=== PATIENT | female | born 1985 | race Hispanic/Latino ===

== ENCOUNTER 2019-09-02 04:14 | Observation (INO) | payer MEDICARE ==
[2019-09-02 05:35] LABS: BASOPHILS % (AUTO) 0.5 % (0.0-5.0); EOSINOPHILS % (AUTO) 1.3 % (0.0-8.0); HEMATOCRIT 41.2 % (36-48); MEAN CORPUSCULAR HGB CONC 32.5 g/dL (32.0-36.0); MONOCYTES % (AUTO) 8.3 % (3.0-13.0); PLATELET COUNT (AUTO) 435 K/uL (130-400); RED BLOOD CELL COUNT(AUTO) 5.15 MIL/uL (4.00-5.50); RED CELL DISTRIBUTION WIDTH 12.9 % (11.0-15.5); WHITE BLOOD COUNT (AUTO) 7.5 K/uL (4.8-10.8)
[2019-09-02 05:43] LABS: CREATININE 0.5 mg/dL (0.5-1.5); POTASSIUM 4.1 mmol/L (3.5-5.1)
[2019-09-02 05:47] LABS: BILIRUBIN,TOTAL 0.8 mg/dL (0.2-1.0); TOTAL PROTEIN, SERUM 8.5 g/dL (6.0-8.3)
[2019-09-02 05:48] LABS: INR 0.92 (0.85-1.15); PARTIAL THROMBOPLASTIN TIME 27.3 SEC (26.3-35.5)
[2019-09-02] MEDS ORDERED: DiphenhydrAMINE HCL 50 MG/ML VIAL ONE (07:25)
[2019-09-02] MEDS ORDERED: METOCLOPRAMIDE 10 MG/2 ML VIAL ONE (07:25)
[2019-09-02] MEDS ORDERED: SODIUM CHLORIDE 0.9% 1000ML 1,000 ML IV ONE (07:25)
[2019-09-02] MEDS ORDERED: IOHEXOL-350 50ML VIAL IV ONE (07:45)
[2019-09-02] MEDS ORDERED: IOHEXOL 350 MG/ML 100ML INFUS..BTL IV ONE (07:45)
[2019-09-02] MEDS ORDERED: LACTULOSE 20 GM/30 ML UDCUP PO PRN (08:00)
[2019-09-02] MEDS ORDERED: ACETAMINOPHEN 325 MG TAB PO PRN ×2 (08:00)
[2019-09-02] MEDS ORDERED: KETOROLAC TROMETHAMINE 15MG/ML IV PRN (08:00)
[2019-09-02] MEDS ORDERED: ONDANSETRON HCL 4 MG/2 ML VIAL IV PRN (08:00)
[2019-09-02] MEDS ORDERED: FAMOTIDINE 20MG TAB 20 MG TAB PO SCH (09:00)
[2019-09-02] MEDS ORDERED: FAMOTIDINE 20MG TAB 20 MG TAB ONE ×2 (09:52→20:29)
[2019-09-02] MEDS ORDERED: ASPIRIN 81MG TAB.CHEW PO SCH (10:00)
[2019-09-02] MEDS ORDERED: ASPIRIN 81MG TAB.CHEW ONE (10:22)
[2019-09-02] MEDS ORDERED: METOPROLOL TARTRATE 25 MG TAB ONE ×2 (10:22→20:29)
[2019-09-02 10:54] LABS: HEMOGLOBIN A1C 5.8 % (4.0-6.0)
[2019-09-02 11:05] LABS: CHOLESTEROL 161 mg/dL (<200); HDL CHOLESTEROL 31 mg/dL (35-85); LDL DIRECT 110 mg/dL (0-99); THYROID STIMULATING HORMONE 1.64 uIU/mL (0.36-3.74); TRIGLYCERIDES 156 mg/dL (30-200)
[2019-09-02] MEDS ORDERED: ACETAMINOPHEN 325 MG TAB ONE (20:29)
[2019-09-02] MEDS ORDERED: METOPROLOL TARTRATE 25 MG TAB PO SCH (21:00)
[2019-09-03 06:07] LABS: BASOPHILS % (AUTO) 0.5 % (0.0-5.0); EOSINOPHILS % (AUTO) 1.7 % (0.0-8.0); HEMATOCRIT 38.9 % (36-48); LYMPHOCYTES % (AUTO) 25.6 % (21.0-51.0); MEAN CORPUSCULAR HEMOGLOBIN 26.5 pg (27.0-33.0); MEAN CORPUSCULAR HGB CONC 32.4 g/dL (32.0-36.0); MEAN CORPUSCULAR VOLUME 81.7 fL (79-99); MONOCYTES % (AUTO) 7.8 % (3.0-13.0); NEUTROPHILS % (AUTO) 63.9 % (40.0-77.0); PLATELET COUNT (AUTO) 392 K/uL (130-400); RED BLOOD CELL COUNT(AUTO) 4.76 MIL/uL (4.00-5.50); RED CELL DISTRIBUTION WIDTH 13.1 % (11.0-15.5); WHITE BLOOD COUNT (AUTO) 9.7 K/uL (4.8-10.8)
[2019-09-03 06:31] LABS: CREATININE 0.7 mg/dL (0.5-1.5); POTASSIUM 3.6 mmol/L (3.5-5.1)
[2019-09-03] MEDS ORDERED: ASPIRIN 81MG TAB.CHEW ONE (07:43)
[2019-09-03] MEDS ORDERED: FAMOTIDINE 20MG TAB 20 MG TAB ONE (07:44)
[2019-09-03] MEDS ORDERED: METOPROLOL TARTRATE 25 MG TAB ONE (07:44)
--- NOTE | 2019-09-04 07:45 | NUR ---
CM NOTE DONE BY Diego GUTHRIE RN. CALL TO SPOUSE, FACE SHEET UPDATED. RICHARD IS INDPENDENT, NO DME, DRIVES, HOME SAFE AND ACCESSIBLE, DCP HOME Addendum: 09/04/19 at 0749 by EBTZAIDA CANELA RN CM Amended: Links added.
== END 2019-09-03 22:06 | disposition home or self-care (01) ==
LOC: EDH 04:14 → EDHIP 07:55
PROVIDERS: ADMIT Hospitalist; ATTEND Hospitalist
DX: J44.9 Chronic obstructive pulmonary disease, unspecified (principal); U07.1 COVID-19; I47.1 Supraventricular tachycardia; G43.109 Migraine with aura, not intractable, without status migrainosus; I10 Essential (primary) hypertension; M06.9 Rheumatoid arthritis, unspecified; E66.9 Obesity, unspecified
CPT/HCPCS: 36415 ×2; 70450; 70496; 70498; 70551; 80048; 80053; 80061; 81025; 82550; 83036; 83735; 84443; 84484 ×4; 85025 ×2; 85610; 85730; 93005 ×4; 99285; G0378 ×18; J1200; J2765; J7030; Q9967 ×2

== ENCOUNTER → 2019-10-26 | Outpatient (CLI) | payer MEDICARE | END | disposition home or self-care (01) | LOC: SHCH 15:43 | PROVIDERS: ATTEND Internal Medicine Cardiovascular Disease | DX: I47.1 Supraventricular tachycardia (principal) | CPT/HCPCS: 93306; 93356 ==

== ENCOUNTER 2023-06-08 14:30 | Emergency (ER) | payer MEDICARE, OTHER ==
[~2023-06-08] VITALS: Ht 147.3 cm; Wt 72.6 kg
[2023-06-08 15:25] LABS: BASOPHILS # (AUTO) 0.07 K/uL (0.00-0.20); BASOPHILS % (AUTO) 0.6 % (0.0-5.0); EOSINOPHILS # (AUTO) 0.04 K/uL (0.00-0.70); EOSINOPHILS % (AUTO) 0.3 % (0.0-8.0); HEMATOCRIT 38.9 % (36-48); IMMATURE GRANULOCYTE ABSOLUTE 0.08 K/uL (0-1); LYMPHOCYTES # (AUTO) 1.3 K/uL (1.0-4.8); LYMPHOCYTES % (AUTO) 10.5 % (21.0-51.0); MEAN CORPUSCULAR HEMOGLOBIN 26.5 pg (27.0-33.0); MEAN CORPUSCULAR HGB CONC 33.2 g/dL (32.0-36.0); MONOCYTES # (AUTO) 0.8 K/uL (0.1-1.0); NEUTROPHILS # (AUTO) 10.4 K/uL (1.8-7.7); PLATELET COUNT (AUTO) 437 K/uL (130-400); RED BLOOD CELL COUNT(AUTO) 4.86 MIL/uL (4.00-5.50); RED CELL DISTRIBUTION WIDTH 13.2 % (11.0-15.5); WHITE BLOOD COUNT (AUTO) 12.7 K/uL (4.8-10.8)
[2023-06-08 15:36] LABS: CREATININE 0.7 mg/dL (0.5-1.0); POTASSIUM 3.6 mmol/L (3.5-5.1)
[2023-06-08 15:41] LABS: ALBUMIN 3.3 g/dL (3.5-5.0); BILIRUBIN,TOTAL 0.8 mg/dL (0.2-1.0); TOTAL PROTEIN, SERUM 7.5 g/dL (6.0-8.3)
[2023-06-08] MEDS: ACETAMINOPHEN 500 MG TABLET PO ONE (16:04)
[2023-06-08] MEDS: 0.9%NACL 1000ML 1,000 ML IV ONE (16:04)
[2023-06-08] MEDS: DiphenhydrAMINE HCL 50 MG/ML VIAL IV ONE (18:50)
[2023-06-08] MEDS: PROCHLORPERAZINE 10MG/2ML INJ IV ONE (18:50)
[2023-06-08] MEDS: KETOROLAC 30MG VIAL (30MG/ML) IVP ONE (18:51)
[2023-06-08 20:30] VITALS: BP 106/53; PULSE 85; RESP 5; O2SAT 98
== END 2023-06-08 20:53 | disposition home or self-care (01) ==
LOC: EDH 14:30
DX: I47.10 Supraventricular tachycardia, unspecified (principal); G43.109 Migraine with aura, not intractable, without status migrainosus; R09.81 Nasal congestion; I10 Essential (primary) hypertension; Z90.89 Acquired absence of other organs; Z98.890 Other specified postprocedural states; Z88.8 Allergy status to other drugs, medicaments and biological substances
CPT/HCPCS: 99291; 96374; 70450; 96361; 96375; 84484; 80053; 85025; 81025; 36415; 99292; 93005; J1200; J7030; J0780; J1885

== ENCOUNTER 2023-10-01 05:54 | Day surgery (SDC) | payer OTHER ==
[2023-09-27 11:17] VITALS: BP 152/75; PULSE 80; RESP 18
[2023-09-27 11:32] LABS: BASOPHILS # (AUTO) 0.05 K/uL (0.00-0.20); BASOPHILS % (AUTO) 0.6 % (0.0-5.0); EOSINOPHILS # (AUTO) 0.08 K/uL (0.00-0.70); EOSINOPHILS % (AUTO) 0.9 % (0.0-8.0); HEMATOCRIT 40.8 % (36-48); IMMATURE GRANULOCYTE ABSOLUTE 0.06 K/uL (0-1); LYMPHOCYTES # (AUTO) 1.9 K/uL (1.0-4.8); LYMPHOCYTES % (AUTO) 21.2 % (21.0-51.0); MEAN CORPUSCULAR HEMOGLOBIN 25.8 pg (27.0-33.0); MEAN CORPUSCULAR HGB CONC 31.6 g/dL (32.0-36.0); MEAN CORPUSCULAR VOLUME 81.6 fL (79-99); MONOCYTES # (AUTO) 0.5 K/uL (0.1-1.0); MONOCYTES % (AUTO) 5.2 % (3.0-13.0); NEUTROPHILS # (AUTO) 6.2 K/uL (1.8-7.7); NEUTROPHILS % (AUTO) 71.4 % (40.0-77.0); PLATELET COUNT (AUTO) 498 K/uL (130-400); RED CELL DISTRIBUTION WIDTH 13.5 % (11.0-15.5); WHITE BLOOD COUNT (AUTO) 8.7 K/uL (4.8-10.8)
[2023-09-27 11:58] LABS: INR 0.96 (0.85-1.15); PROTHROMBIN TIME 10.4 SEC (9.6-11.6)
[2023-09-27 12:00] LABS: PARTIAL THROMBOPLASTIN TIME 28.3 SEC (26.3-35.5)
[2023-09-27 12:11] LABS: CREATININE 0.7 mg/dL (0.5-1.0); POTASSIUM 3.9 mmol/L (3.5-5.1)
[~2023-10-01] VITALS: Ht 147.3 cm; Wt 82.6 kg
[2023-10-01] VITALS (7 sets, daily range): BP systolic 110–119; BP diastolic 56–84; PULSE 86–95; RESP 14–16
[~2023-10-01 05:54] MED LIST: ALBUTEROL IH; CAL/MG/ZINC PO; CHOL200013 PO; IBUP-2077 PO; MVI PO; PULMICORT IH; VERA120C2 PO
[2023-10-01] MEDS: 0.9%NACL 1000ML 1,000 ML IV ONE (06:29)
[2023-10-01] MEDS ORDERED: LIDOCAINE HCL 400MG/20ML VIAL ONE (07:23)
[2023-10-01] MEDS ORDERED: HEParin-NS 1,000 UNIT/500 ML 1,000 ML IV ONE (07:23)
[2023-10-01] MEDS ORDERED: HEParin 10,000 UNIT/10ML (1,000 UNIT/ML) VIAL ONE ×2 (07:23→09:09)
[2023-10-01] MEDS ORDERED: MIDAZOLAM HCL 1 MG/ML 2ML VIAL ONE ×5 (07:45→10:48)
[2023-10-01] MEDS ORDERED: MEPERIDINE-PF 25 MG/ML SYG ONE ×5 (07:45→10:47)
[2023-10-01] MEDS ORDERED: ISOPROTERENOL HCL 0.2 MG/ML AMP/VIAL/BAG ONE (08:30)
[2023-10-01] MEDS ORDERED: METOPROLOL TARTRATE 1 MG/ML 5ML VIAL IV ONE (10:33)
[2023-10-01] MEDS ORDERED: PROTAMINE SULFATE 10 MG/ML 5 ML VIAL ONE (11:05)
[2023-10-01] MEDS ORDERED: METO-391 PO (12:01)
== END 2023-10-01 14:45 | disposition home or self-care (01) ==
LOC: DAH 05:54
PROVIDERS: ATTEND Internal Medicine Cardiovascular Disease
DX: I47.10 Supraventricular tachycardia, unspecified (principal); M06.9 Rheumatoid arthritis, unspecified; M79.7 Fibromyalgia; J45.909 Unspecified asthma, uncomplicated; G43.909 Migraine, unspecified, not intractable, without status migrainosus; Z90.89 Acquired absence of other organs; Z79.01 Long term (current) use of anticoagulants; Z79.899 Other long term (current) drug therapy
CPT/HCPCS: 80048; 85025; 85610; 85730; 36415 ×2; 93005; 93653; 93623; 85347 ×5; C1894 ×5; C1732 ×3; C1730 ×3; A4649 ×2; J3490 ×3; J7030; J2720; J1644 ×3; J2250 ×5; J2175 ×5; A4215; A4222; A4221; A4663; A4216; A4606; A4223 ×3; 99156; 99157

== ENCOUNTER 2023-12-03 05:52 | Emergency (ER) | payer OTHER ==
[~2023-12-03] VITALS: Ht 147.3 cm; Wt 81.6 kg
[~2023-12-03 05:52] MED LIST changes: +METO-391 PO; -VERA120C2 PO
[2023-12-03 05:54] VITALS: O2SAT 98
[2023-12-03 05:55] VITALS: BP 135/83; PULSE 102; RESP 18; TEMP 97.5
== END 2023-12-03 06:10 | disposition left against medical advice (07) ==
LOC: EDH 05:52
DX: R10.84 Generalized abdominal pain (principal); Z53.21 Procedure and treatment not carried out due to patient leaving prior to being seen by health care provider

== ENCOUNTER 2023-12-12 16:17 | Emergency (ER) | payer OTHER ==
[~2023-12-12] VITALS: Ht 152.4 cm; Wt 81.6 kg
[2023-12-12 16:42] LABS: BASOPHILS # (AUTO) 0.06 K/uL (0.00-0.20); BASOPHILS % (AUTO) 0.4 % (0.0-5.0); EOSINOPHILS # (AUTO) 0.05 K/uL (0.00-0.70); EOSINOPHILS % (AUTO) 0.4 % (0.0-8.0); HEMATOCRIT 41.2 % (36-48); IMMATURE GRANULOCYTE ABSOLUTE 0.09 K/uL (0-1); LYMPHOCYTES # (AUTO) 1.9 K/uL (1.0-4.8); LYMPHOCYTES % (AUTO) 13.7 % (21.0-51.0); MEAN CORPUSCULAR HEMOGLOBIN 26.2 pg (27.0-33.0); MEAN CORPUSCULAR VOLUME 81.9 fL (79-99); MONOCYTES # (AUTO) 0.8 K/uL (0.1-1.0); MONOCYTES % (AUTO) 6.2 % (3.0-13.0); NEUTROPHILS # (AUTO) 10.6 K/uL (1.8-7.7); NEUTROPHILS % (AUTO) 78.6 % (40.0-77.0); PLATELET COUNT (AUTO) 500 K/uL (130-400); RED BLOOD CELL COUNT(AUTO) 5.03 MIL/uL (4.00-5.50); RED CELL DISTRIBUTION WIDTH 13.6 % (11.0-15.5); WHITE BLOOD COUNT (AUTO) 13.5 K/uL (4.8-10.8)
[2023-12-12 16:52] LABS: CREATININE 0.9 mg/dL (0.5-1.0); POTASSIUM 3.4 mmol/L (3.5-5.1)
[2023-12-12 17:01] LABS: ALBUMIN 3.6 g/dL (3.5-5.0); BILIRUBIN,TOTAL 0.3 mg/dL (0.2-1.0)
[2023-12-12 17:31] VITALS: BP 133/80; PULSE 98; RESP 16; TEMP 98.3; O2SAT 100
[2023-12-12] MEDS: ondanSETRON 4MG INJ IVP STA (17:39)
[2023-12-12] MEDS: ASPIRIN 81MG CHEW TAB PO STA (17:39)
[2023-12-12] MEDS: FAMOTIDINE 20MG VIAL IV STA (17:39)
[2023-12-12] MEDS: MAG/ALUM/SIMETH 30 ML UDCUP PO ONE (17:52)
[2023-12-12] MEDS: LIDOCAINE HCL 2% VISCOUS 15 ML UDCUP PO ONE (17:52)
[2023-12-12] MEDS: DICYCLOMINE HCL 10 MG/5 ML ML PO ONE (17:52)
[2023-12-12] MEDS: ketOROlac 15MG/ML VIAL (15MG/ML) IV STA (18:45)
[2023-12-12] MEDS ORDERED: FAMO-136 PO (19:14)
[2023-12-12] MEDS ORDERED: KETO10TA2 PO (19:14)
== END 2023-12-12 19:40 | disposition home or self-care (01) ==
LOC: EDH 16:17
DX: M94.0 Chondrocostal junction syndrome [Tietze] (principal); K29.70 Gastritis, unspecified, without bleeding; I11.9 Hypertensive heart disease without heart failure; Z79.51 Long term (current) use of inhaled steroids; Z79.899 Other long term (current) drug therapy; Z88.8 Allergy status to other drugs, medicaments and biological substances; Z90.89 Acquired absence of other organs; Z98.890 Other specified postprocedural states
CPT/HCPCS: 99285; 96374; 96375; 71045; 84484 ×2; 80053; 83690; 85025; 36415; 93005; J3490; J2405; J1885

== ENCOUNTER 2024-07-02 00:31 | Emergency (ER) | payer OTHER ==
[~2024-07-02] VITALS: Ht 147.3 cm; Wt 81.6 kg
[~2024-07-02 00:31] MED LIST changes: +FAMO-136 PO; +KETO10TA2 PO
--- NOTE | 2024-07-02 01:06 | ERN ---
ED Note History of Present Illness Stated Complaint: C/O ABD PAIN Chief Complaint: Abdominal Pain Time Seen by MD: 00:34 Time Seen by Midlevel: 00:34 Dictation: The patient is a 38-year-old female with a history of hypertension, scleroderma, tachycardia who presents to the emergency department with complaints of epigastric pain onset 3 hours ago after eating [employer] D[employer]. Patient denies any nausea or vomiting. Denies any fevers. Denies diarrhea. Allergies: Coded Allergies: nalbuphine (Unverified Allergy, Unknown, 09/03/19) Home Meds Active Scripts Ketorolac Tromethamine (Ketorolac Tromethamine) 10 Mg Tablet, 1 TAB PO Q6HPRN PRN for pain for 5 Days, #20 TAB 0 Refills Prov:WES WELSH CONSULTING SENIOR PRACTICE DIRECTOR 12/12/23 Famotidine (Pepcid) 20 Mg Tablet, 1 TAB PO BID for 30 Days, #60 TAB 0 Refills Prov:WES WELSH CONSULTING SENIOR PRACTICE DIRECTOR 12/12/23 Metoprolol Succinate (Metoprolol Succinate) 50 Mg Tab.er.24h, 50 MG PO DAILY, #30 TAB 3 Refills Prov:RAYMOND ALMEIDA MD 10/01/23 Reported Medications [Stephane/Mg/Zinc] No Conflict Check, 1 TAB PO DAILY 09/27/23 [Pulmicort] No Conflict Check, 2 PUFF IH AD PRN for SHORTNESS OF BREATH 09/27/23 [Albuterol] No Conflict Check, 2 PUFF IH AD PRN for SHORTNESS OF BREATH 09/27/23 Ibuprofen (Ibuprofen 800 mg Tab) 800 Mg Tab, 800 MG PO TID PRN for PAIN, TAB 09/27/23 [Mvi] No Conflict Check, 1 TAB PO DAILY 09/27/23 Cholecalciferol (Vitamin D3) (Vitamin D3) 50 Mcg (2000 Unit) Capsule, 50 MCG PO DAILY, CAP 09/27/23 Past Medical History Past Medical History: Hypertension Additional Past Medical Hx: TACHYCARDIA, SCLERADERMA, SVT Surgical History: Unknown LMP: June 11, 2024 RN Note Reviewed/Agreed w/PFSH: Yes Review of System Dictation Constitutional: Negative for fever,chills, and weight loss Eyes: Negative for injury, pain,redness, and discharge ENT: Negative for injury,pain or swelling Cardiovascular: Negative for chest pain, palpitations, and edema Respiratory: Negative for shortness of breath, cough, and wheezing, Abdomen/GI: Negative for nausea, vomiting, diarrhea, and constipation positive for abdominal pain Back: Negative for injury and pain : Negative for injury, bleeding and discharge MS/Extremity: Negative for injury and deformity Skin: Negative for rash, and discoloration Neuro: Negative for headache, weakness, numbness, tingling, and seizure Psych: Negative for suicide ideation, homicidal ideation, and hallucinations Initial Vital Sign VS Vital Signs Date Time Temp Pulse Resp B/P (MAP) Pulse Ox O2 Delivery O2 Flow Rate FiO2 07/02/24 00:33 98.1 107 20 156/111 98 Room Air 07/02/24 03:37 0 21 Physical Exam Dictation Vital Signs reviewed General Appearance: Alert, oriented x 3, no acute distress, well developed, nourished. Head and Face: non-traumatic. Eyes: PERRL, pink conjunctivas, eyelid no trauma, anterior chamber with arcus senilis. Ears: Pinnas intact and no signs of trauma or erythema ear canals clear and no discharge TM no erythema Nose: No discharge, no bleeding. Oropharynx: Mouth normal, tongue pink. pharynx clear,no erythema, tonsils no exudates, no abscesses noted, mucous membrane moist Neck: Supple, non-tender, no thyromegaly, no masses, no JVD, no bruits Breast:Deferred Chest:No tenderness, no crepitus, no paradoxical movement, no retractions Lungs:Clear, well-ventilated, symmetric, no rales, no wheezing, no rhonchi, no stridor, good breath sounds bilaterally Heart: Regular rate, regular rhythm, no murmur, no gallops Vascular: no peripheral edema, Abdomen: Soft, positive bowel sounds, nondistended, no guarding, Epigastric tenderness, no rebound, no masses no hepatomegaly, no splenomegaly, no Worley's sign, no hernias. Rectal: Deferred Genital: Deferred Neurological: Normal speech, motor function intact, sensory function intact Musculoskeletal: Neck nontender, full range of motion, back nontender, full range of motion, Extremities: nontender, full range of motion Skin: Color pink, dry, no turgor, no rash, no lacerations, no abrasions, no contusions. Lymphatic: Deferred Results (Laboratory/Radiology) Laboratory/Radiology Laboratory Tests Test 07/02/24 00:58 07/02/24 02:02 07/02/24 03:31 White Blood Count 16.9 K/uL (4.8-10.8) H Red Blood Count 5.12 MIL/uL (4.00-5.50) Hemoglobin 13.4 g/dL (12.0-16.0) Hematocrit 41.6 % (36-48) Mean Corpuscular Volume 81.3 fL (79-99) Mean Corpuscular Hemoglobin 26.2 pg (27.0-33.0) L Mean Corpuscular Hemoglobin Concent 32.2 g/dL (32.0-36.0) Red Cell Distribution Width 13.8 % (11.0-15.5) Platelet Count 511 K/uL (130-400) H Mean Platelet Volume 11.1 fL (7.5-10.5) H Immature Granulocyte % (Auto) 0.6 % (0-1) Neutrophils (%) (Auto) 76.5 % (40.0-77.0) Lymphocytes (%) (Auto) 14.3 % (21.0-51.0) L Monocytes (%) (Auto) 7.9 % (3.0-13.0) Eosinophils (%) (Auto) 0.2 % (0.0-8.0) Basophils (%) (Auto) 0.5 % (0.0-5.0) Neutrophils # (Auto) 12.9 K/uL (1.8-7.7) H Lymphocytes # (Auto) 2.4 K/uL (1.0-4.8) Monocytes # (Auto) 1.3 K/uL (0.1-1.0) H Eosinophils # (Auto) 0.04 K/uL (0.00-0.70) Basophils # (Auto) 0.08 K/uL (0.00-0.20) Absolute Immature Granulocyte (auto 0.11 K/uL (0-1) Nucleated Red Blood Cells 0.0 % (0.0-0.19) Sodium Level 143 mmol/L (136-145) Potassium Level 4.0 mmol/L (3.5-5.1) Chloride Level 104 mmol/L (101-111) Carbon Dioxide Level 30 mmol/L (21-32) Blood Urea Nitrogen 15 mg/dL (7-18) Creatinine 0.8 mg/dL (0.5-1.0) Glomerular Filtration Rate Calc 98 mL/min (>90) Random Glucose 116 mg/dL (70-105) H Total Calcium 9.3 mg/dL (8.5-10.1) Total Bilirubin 0.7 mg/dL (0.2-1.0) Direct Bilirubin 0.2 mg/dL (0.0-0.3) Aspartate Amino Transf (AST/SGOT) 96 U/L (10-37) H Alanine Aminotransferase (ALT/SGPT) 64 U/L (12-78) Alkaline Phosphatase 98 U/L (50-136) Total Creatine Kinase 58 U/L (21-232) # Troponin I High Sensitivity < 4 ng/L (4-50) L Total Protein 8.2 g/dL (6.0-8.3) Albumin 3.8 g/dL (3.5-5.0) Lipase 59 U/L (16-77) Lactic Acid Level 1.0 mmol/L (0.8-2.5) Urine Color LIGHT-YELLOW (YELLOW) Urine Appearance CLOUDY (CLEAR) H Urine pH 6.0 (5.0-8.0) Urine Specific [place] 1.020 (1.001-1.031) Urine Protein NEGATIVE mg/dL (NEGATIVE) Urine Glucose (UA) NEGATIVE mg/dL (NEGATIVE) Urine Ketones NEGATIVE mg/dL (NEGATIVE) Urine Occult Blood NEGATIVE (NEGATIVE) Urine Nitrate 1+ (NEGATIVE) H Urine Bilirubin NEGATIVE mg/dL (NEGATIVE) Urine Urobilinogen 0.2 mg/dL (0.2-1.0) Urine Leukocyte Esterase 500 Praful/uL (NEGATIVE) H Urine RBC 2-5 /HPF (0-1) H Urine WBC 11-25 /HPF (0-1) H Urine Squamous Epithelial Cells MOD /HPF (0-2) Urine Bacteria None /HPF (None Seen) Urine HCG, Qualitative NEGATIVE (NEGATIVE) Urine Opiates Screen POSITIVE (NEGATIVE) H Urine Barbiturates Screen NEGATIVE (NEGATIVE) Urine Phencyclidine Screen NEGATIVE (NEGATIVE) Urine Amphetamines Screen NEGATIVE (NEGATIVE) Urine Benzodiazepines Screen NEGATIVE (NEGATIVE) Urine Cocaine Screen NEGATIVE (NEGATIVE) Urine Marijuana (THC) Screen NEGATIVE (NEGATIVE) Labs Reviewed?: Yes EKG: (+) rhythm (Sinus rhythm) EKG Comment: Date:07/02/2024 Time:004 Ventricular rate:99 [place] interval:150 QRS duration:92 QT/QTc:340 EKG interpretation: Sinus rhythm Reviewed by ED Attending no STEMI ED Course ED Course Orders Procedure Category Date Status Time 12 Lead Ekg Tracing- EKG 07/02/24 Logged Technical 00:41 Cbc With Differential LAB 07/02/24 Complete 00:50 Troponin I High LAB 07/02/24 Complete Sensitivity 00:50 ,Urine Test LAB 07/02/24 Complete 00:50 Urinalysis Profile LAB 07/02/24 Complete 00:50 0.9%Nacl 1000ml (Ns PHA 07/02/24 Complete 1000ml) 01:00 Ondansetron 4mg Inj PHA 07/02/24 Complete (Zofran 4mg Inj) 01:00 Pantoprazole 40mg Inj PHA 07/02/24 Complete (Protonix 40mg Inj 01:00 Creatine Kinase, Total LAB 07/02/24 Complete 00:50 Lipase LAB 07/02/24 Complete 00:50 Basic Metabolic Panel LAB 07/02/24 Complete 00:50 Morphine 4mg Syg PHA 07/02/24 Complete (Morphine 4mg Syg) 01:00 Hepatic Function Panel LAB 07/02/24 Complete 00:50 Us Abdominal Ruq\Ltd US 07/02/24 Taken 01:44 Blood Cult KATHY 07/02/24 In Process 01:44 Lactic Acid LAB 07/02/24 Complete 01:44 Drug Screen Urine LAB 07/02/24 Complete 01:44 Zosyn 3.375gm+Ns 50ml PHA 07/02/24 Complete (Zosyn 3.375gm+Ns 02:00 Culture Urine KATHY 07/02/24 In Process 03:44 Current Medications Medications (Trade) Dose Ordered Sig/Gerald Route PRN Reason Start Time Stop Time Status Last Admin Dose Admin Morphine Sulfate (morPHINE 4MG SYG) 4 mg ONCE ONCE IVP 07/02/24 01:00 07/02/24 01:22 DC 07/02/24 01:31 Ondansetron HCl (zoFRAN 4MG INJ) 4 mg ONCE ONCE IVP 07/02/24 01:00 07/02/24 01:01 DC 07/02/24 01:19 Pantoprazole Sodium (PROTonix 40MG INJ) 40 mg ONCE ONCE IVP 07/02/24 01:00 07/02/24 01:01 DC 07/02/24 01:19 Piperacillin Sod/ Tazobactam Sod (Zosyn 3.375gm+NS 50ml) 3.375 gm ONCE ONCE IV 07/02/24 02:00 07/02/24 02:01 DC 07/02/24 02:13 Sodium Chloride 1,000 ml @ 0 mls/hr ONCE ONCE IV 07/02/24 01:00 07/02/24 01:01 DC 07/02/24 01:20 Vital Signs Date Time Temp Pulse Resp B/P (MAP) Pulse Ox O2 Delivery O2 Flow Rate FiO2 07/02/24 03:37 98.4 17 10 115/60 0 Room Air* 0 21 07/02/24 00:33 98.1 107 20 156/111 98 Room Air Patient has a urinary tract infection. She has received some antibiotics here in the emergency room Zosyn I will discharge her with some oral Keflex. Medical Decision Making [facility] The patient is a 38-year-old female with a history of hypertension, scleroderma, tachycardia who presents to the emergency department with complaints of epigastric pain onset 3 hours ago after eating [employer]. Patient denies any nausea or vomiting. Denies any fevers. Denies diarrhea. DX & DISP Disposition: Discharge Departure Impression: Primary Impression: UTI (urinary tract infection) Condition: Stable Scripts Cephalexin Monohydrate (Keflex) 500 Mg Cap 500 MG PO QID for 7 Days, #28 CAP Prov: JULIAN HOFF MD 07/02/24 Additional Instructions: Please return to the emergency room if the symptoms of the urinary tract infection get worse. If you start to have increased abdominal pain while taking the antibiotics. Also if you can not maintain hydration and adequate nutrition due to abdominal pain. Referrals: Debbie HERNANDES MD (PCP) DIANA COOLEY July 02, 2024 01:05 JULIAN HOFF MD July 02, 2024 04:09
[2024-07-02 01:17] LABS: BASOPHILS # (AUTO) 0.08 K/uL (0.00-0.20); BASOPHILS % (AUTO) 0.5 % (0.0-5.0); EOSINOPHILS # (AUTO) 0.04 K/uL (0.00-0.70); EOSINOPHILS % (AUTO) 0.2 % (0.0-8.0); HEMATOCRIT 41.6 % (36-48); IMMATURE GRANULOCYTE ABSOLUTE 0.11 K/uL (0-1); LYMPHOCYTES # (AUTO) 2.4 K/uL (1.0-4.8); LYMPHOCYTES % (AUTO) 14.3 % (21.0-51.0); MEAN CORPUSCULAR HEMOGLOBIN 26.2 pg (27.0-33.0); MEAN CORPUSCULAR HGB CONC 32.2 g/dL (32.0-36.0); MEAN CORPUSCULAR VOLUME 81.3 fL (79-99); MONOCYTES # (AUTO) 1.3 K/uL (0.1-1.0); MONOCYTES % (AUTO) 7.9 % (3.0-13.0); NEUTROPHILS # (AUTO) 12.9 K/uL (1.8-7.7); NEUTROPHILS % (AUTO) 76.5 % (40.0-77.0); PLATELET COUNT (AUTO) 511 K/uL (130-400); RED BLOOD CELL COUNT(AUTO) 5.12 MIL/uL (4.00-5.50); RED CELL DISTRIBUTION WIDTH 13.8 % (11.0-15.5); WHITE BLOOD COUNT (AUTO) 16.9 K/uL (4.8-10.8)
[2024-07-02] MEDS: ondanSETRON 4MG INJ IVP ONE (01:19)
[2024-07-02] MEDS: PANTOPrazole 40 MG/VIAL IVP ONE (01:19)
[2024-07-02] MEDS: 0.9%NACL 1000ML 1,000 ML IV ONE (01:20)
[2024-07-02 01:25] LABS: CREATININE 0.8 mg/dL (0.5-1.0)
[2024-07-02 01:31] LABS: ALBUMIN 3.8 g/dL (3.5-5.0); BILIRUBIN,DIRECT 0.2 mg/dL (0.0-0.3); BILIRUBIN,TOTAL 0.7 mg/dL (0.2-1.0); TOTAL PROTEIN, SERUM 8.2 g/dL (6.0-8.3)
[2024-07-02] MEDS: morPHINE 4 MG SYG IVP ONE (01:31)
[2024-07-02] MEDS: ZOSYN 3.375GM +NS 50ML IV ONE (02:13)
[2024-07-02 03:37] VITALS: BP 115/60; PULSE 17; RESP 10; TEMP 98.4; O2SAT 0
[2024-07-02 03:43] LABS: APPEARANCE,URINE CLOUDY (CLEAR); BILIRUBIN,URINE NEGATIVE (NEGATIVE); COLOR,URINE LIGHT-YELLOW (YELLOW); GLUCOSE, URINE (UA) NEGATIVE (NEGATIVE); KETONES,URINE NEGATIVE (NEGATIVE); LEUKOCYTE ESTERASE ,URINE 500 Leu/uL (NEGATIVE); NITRATE,URINE 1+ (NEGATIVE); OCCULT BLOOD,URINE NEGATIVE (NEGATIVE); PROTEIN,URINE NEGATIVE (NEGATIVE); UROBILINOGEN,URINE 0.2 mg/dL (0.2-1.0)
[2024-07-02 03:44] LABS: ADD UA MICROSCOPIC YES; MUCUS,URINE RARE LPF (None Seen); SQUAMOUS EPITHELIAL CELL,UR MOD /HPF (0-2)
[2024-07-02 03:47] LABS: HCG,QUALITATIVE URINE NEGATIVE (NEGATIVE)
[2024-07-02 03:50] LABS: AMPHET/METH SCREEN,URINE NEGATIVE (NEGATIVE); BARBITURATE SCREEN, URINE NEGATIVE (NEGATIVE); BENZODIAZEPINES SCREEN,URINE NEGATIVE (NEGATIVE); CANNABINOID SCREEN,URINE NEGATIVE (NEGATIVE); COCAINE SCREEN,URINE NEGATIVE (NEGATIVE); OPIATE SCREEN,URINE POSITIVE (NEGATIVE); PHENCYCLIDINE SCREEN,URINE NEGATIVE (NEGATIVE)
[2024-07-02] MEDS ORDERED: CEPH500B PO (04:08)
[2024-07-02] MEDS ORDERED: KETO10 PO (04:19)
[2024-07-02] MEDS: ketOROlac 30MG VIAL (30MG/ML) IVP ONE (04:28)
--- NOTE | 2024-07-02 06:39 | EKG ---
[facility] Test Date: 2024-07-02 Test Time: 00:47:58 Pat Name: ERICA PAT Department: ED Room: Gender: F Ecmo Specialist: [id number] : 1985 Requested By: JULIAN HOFF Order Number: [id number] Reading MD: Andre Roberson Measurements Intervals [place] Rate: 99 P: 23 MI: 150 QRS: 20 QRSD: 92 T: 7 QT: 340 QTc: 437 Interpretive Statements Sinus rhythm Probable left atrial enlargement Compared to ECG 12/12/2023 16:15:42 Sinus tachycardia no longer present Electronically Signed On 07-02-2024 16:54:59 CDT by Andre Roberson Please click the below link to view image of tracing.
--- NOTE | 2024-07-02 09:30 | HMCIMG ---
US ABDOMINAL RUQ\E\LTD HISTORY: Abdominal pain COMPARISON: None TECHNIQUE: Right upper quadrant abdominal ultrasound study was performed. FINDINGS: Liver measures 17 cm. The visualized portion of the pancreas is within normal limits. Liver is echogenic consistent with liver parenchymal disease. Gallstones are seen in the distended gallbladder. Common duct measures 5 mm. No evidence of gallbladder wall thickening is seen. Right kidney measures 10 x 4.7 x 4.8 cm. No hydronephrosis is seen of the right kidney. Echogenic foci are seen in the right kidney measuring 5 x 5 mm. IMPRESSION: 1. Gallstones in the distended gallbladder. No ductal dilatation is seen. 2. No hydronephrosis is seen.
[2024-07-03] MEDS ORDERED: MULT-503 PO (03:22)
[2024-07-03] MEDS ORDERED: METO-391 PO (03:22)
[2024-07-03] MEDS ORDERED: GLUC1TAB61 PO (03:22)
== END 2024-07-02 04:47 | disposition home or self-care (01) ==
LOC: EDH 00:31
DX: N39.0 Urinary tract infection, site not specified (principal); K80.20 Calculus of gallbladder without cholecystitis without obstruction; I10 Essential (primary) hypertension; Z79.51 Long term (current) use of inhaled steroids; Z79.899 Other long term (current) drug therapy
CPT/HCPCS: 99285; 96374; 96375; 76705; 82550; 80076; 84484; 80048; 80305; 83690; 85025; 87040 ×2; 87086; 83605; 81025; 36415; 93005; 81001; J1885; J7030; J2405; J2270; J2543; J2470

== ENCOUNTER 2024-07-02 23:04 | Observation (INO) | payer OTHER ==
[~2024-07-02] VITALS: Ht 147.3 cm; Wt 88.0 kg
[~2024-07-02 23:04] MED LIST changes: +CEPH500B PO; +KETO10 PO
--- NOTE | 2024-07-02 23:56 | ERN ---
General Chief Complaint: Abdominal Pain Stated Complaint: C/O ABD PAIN Time Seen by : 23:09 History of Present Illness Initial Comments Patient is a [age]-year-old female who comes in with the abdominal pain. It is the same pain she had yesterday when she was in the emergency room. Workup yesterday showed a distended gallbladder with gallstones in the neck of the gallbladder. A white blood cell count of 16 and a positive UA for infection. She was discharged on pain medications and Keflex to treat her UTI. She comes back today with the same symptoms. No improvement. The pain is subxiphoid and radiates around to her back both right and left. Worley's sign is equivocal. Allergies: Coded Allergies: nalbuphine (Unverified Allergy, Unknown, 09/03/19) Home Meds Active Scripts Ketorolac Tromethamine (Toradol) 10 Mg Tab, 1 TAB PO Q6HPRN PRN for pain for 5 Days, #20 TAB 0 Refills Prov:JULIAN HOFF MD 07/02/24 Cephalexin Monohydrate (Keflex) 500 Mg Cap, 500 MG PO QID for 7 Days, #28 CAP Prov:JULIAN HOFF MD 07/02/24 Ketorolac Tromethamine (Ketorolac Tromethamine) 10 Mg Tablet, 1 TAB PO Q6HPRN PRN for pain for 5 Days, #20 TAB 0 Refills Prov:WES WELSH ACQUISITION MARKETING MANAGER 12/12/23 Famotidine (Pepcid) 20 Mg Tablet, 1 TAB PO BID for 30 Days, #60 TAB 0 Refills Prov:WES WELSH ACQUISITION MARKETING MANAGER 12/12/23 Metoprolol Succinate (Metoprolol Succinate) 50 Mg Tab.er.24h, 50 MG PO DAILY, #30 TAB 3 Refills Prov:RAYMOND ALMEIDA MD 10/01/23 Reported Medications [Stephane/Mg/Zinc] No Conflict Check, 1 TAB PO DAILY 09/27/23 [Pulmicort] No Conflict Check, 2 PUFF IH AD PRN for SHORTNESS OF BREATH 09/27/23 [Albuterol] No Conflict Check, 2 PUFF IH AD PRN for SHORTNESS OF BREATH 09/27/23 Ibuprofen (Ibuprofen 800 mg Tab) 800 Mg Tab, 800 MG PO TID PRN for PAIN, TAB 09/27/23 [Mvi] No Conflict Check, 1 TAB PO DAILY 09/27/23 Cholecalciferol (Vitamin D3) (Vitamin D3) 50 Mcg (2000 Unit) Capsule, 50 MCG PO DAILY, CAP 09/27/23 Past Medical History Past Medical History: Arthritis, Hypertension, Other Medical History Other: HX OF TACHYCARDIA; HX OF GALLSTONES Past Surgical History: Tonsillectomy, Female( History) LMP: June 11, 2024 Constitutional: (-) chills, (-) diaphoresis, (-) fever, (-) malaise, (-) weakness, (-) other documentation EENTM: (-) eye pain, (-) blurred vision, (-) tearing, (-) double vision, (-) ear pain, (-) ear discharge, (-) nose pain, (-) nose congestion, (-) throat pain , (-) Throat swelling, (-) mouth pain, (-) tooth pain, (-) mouth swelling, (-) other documentation Respiratory: (-) cough, (-) orthopnea, (-) short of breath, (-) stridor, (-) wheezing, (-) other documentation Cardiovascular: (-) chest pain, (-) edema, (-) palpitations, (-) syncope, (-) dyspnea on exertion, (-) other documentation Gastrointestinal/Abdominal: (+) abdominal pain Musculoskeletal: (-) Neck pain, (-) back pain, (-) Flank Pain, (-) joint pain, (-) joint swelling, (-) muscle pain, (-) muscle stiffness, (-) gout, (-) other documentation Neuro: (-) altered mental status, (-) headache, (-) syncope, (-) paralysis, (-) numbness, (-) seizure, (-) pre-existing deficit, (-) tremors, (-) weakness, (-) dizziness, (-) slurred speech, (-) vertigo, (-) other documentation Physical Exam General Appearance: (+) moderate distress Orientation: (+) oriented x 3 Head/Face Trauma: No Eye: bilateral eye normal inspection, bilateral eye PERRL, bilateral eye EOMI Ear, Nose, Throat: (+) hearing grossly normal, (+) normal ENT inspection Neck: (+) normal inspection Respiratory: (+) chest non-tender, (+) lungs clear Heart: (+) regular Vascular: (+) no edema Gastrointestinal: (+) soft, (+) bowel sound present, (+) tender MDM I will repeat the patient's UA to see if it has changed I will also repeat the patient's CBC to see if it is changed I will call the hospitalist who admit the patient to the hospital. She needs to be admitted for unremitting pain possible cholecystitis possible UTI. I discussed the case patient with the hospitalist and they have agreed to take her ED Course DX & DISP Disposition: Inpatient Departure Impression: Primary Impression: UTI (urinary tract infection) Additional Impression: Biliary colic Condition: Stable Referrals: Debbie HERNANDES MD (PCP) JULIAN HOFF MD July 02, 2024 23:55
[2024-07-03] VITALS (8 sets, daily range): BP systolic 107–121; BP diastolic 66–80; PULSE 68–82; RESP 17–20; TEMP 97.3–98; O2SAT 97–99
--- NOTE | 2024-07-03 00:07 | HP ---
[facility] HISTORY AND PHYSICAL Date of Service: July 03, 2024 Time of Service: 00:07 PCP: Dr. Lizbeth Garcia from [facility] Attending/supervising physicians: Dr. Scales and Dr. Freed HISTORY OF PRESENT ILLNESS: Ms. Lindquist is a 38-year-old female who [place] [facility] [place] evaluation of right upper abdominal pain onset yesterday on 07/02/2024. The patient pre sented to the ED yesterday when she started with the pain and was found to have cholelithiasis. ED provider reported that pain was controlled and the patient wanted to go home because she wanted to attend her daughter's graduation today on . The patient stated that after the graduation she went to eat steak and started with severe right upper abdominal pain that radiated to her back. ED provider reports that WBCs were 16, had a positive UA for infection, and was discharged home on pain medication and with Keflex for the UTI. Remarkable lab results: WBCs 10.9, AST 113, ALT 220, albumin 3.3. UA positive for leuk EST. In ED the patient received Toradol 30 mg IV, Maalox, lidocaine, and Bentyl. The patient continued with the abdominal pain. ED provider request patient be admitted to the hospital with a diagnosis of UTI and biliary colic. I assessed the patient at bedside in room 12. The patient appeared uncomfortable breathing was even, unlabored, in no distress. I informed patient and daughter at bedside of labs, diagnostics, and plan of care. She verbalizes understanding and is in agreement with the plan. Plan and assessment are listed below. REVIEW OF SYSTEMS 12-point ROS reviewed with the patient. All pertinent positives mentioned above. Otherwise negative, noncontributory, non-pertinent. PAST MEDICAL HISTORY: As mentioned above PAST SURGICAL HISTORY: Tonsillectomy and PAST SOCIAL HISTORY: Denied alcohol, tobacco, illicit drug use. FAMILY HISTORY: Noncontributory Coded Allergies: nalbuphine (Unverified Allergy, Unknown, 09/03/19) PHYSICAL EXAM GENERAL APPEARANCE: The patient is awake, alert, and oriented, in no acute cardiopulmonary distress. NEUROLOGICAL: Cranial nerves II-XII grossly intact. Motor is 5/5 in bilateral upper and lower extremities proximal to distal. No sensory deficits. HEENT: Face is symmetric. Pupils are equal and reactive. Extraocular movements are intact. NECK: Supple. No JVD. No thyromegaly. No submental, submandibular, pre- /postauricular, occipital or supraclavicular lymphadenopathy. CHEST: Normal chest expansion. No Telemetry. LUNGS: Absence of any rales, rhonchi or any wheezing. CARDIOVASCULAR: Regular. S1 and S2 normal. No appreciable rubs, murmurs or gallops. ABDOMEN: Obese. Upper abdominal tenderness. Soft and nondistended. There is no rebound, voluntary guarding, or rigidity. : Deferred. No Ackerman. EXTREMITIES: Non-edematous and not cyanotic. No clubbing. Good capillary refill. SKIN: No skin breakdown. Vital Sign (Last 24 Hours) 07/02/24 07/02/24 23:10 23:49 Temp 98.1 Pulse 84 Resp 18 B/P (MAP) 116/69 Pulse Ox 94 O2 Delivery Room Air* O2 Flow Rate 0 FiO2 21 LABS: DIAGNOSTICS / RADIOLOGY: [ ] ASSESSMENT: Cholelithiasis with distended gallbladder, per sono on 07/02/2024, POA Acute complicated cystitis, POA Acute intractable abdominal pain, POA Leukocytosis, POA Transaminitis, POA Hypoalbuminemia, POA Hypertension, POA Arthritis History of tachycardia Morbid obesity, BMI 40.5 PLAN: Admit patient to medical floor. Repeat abdominal sonogram. Consult general surgeon for evaluation of cholelithiasis, intractable abdominal pain. Keep NPO for now. LR at 100 mL/hour. Rocephin 2 g IV daily for UTI. Reconciled home medications: Vitamin, metoprolol succinate P.r.n. medications for: Pain management, fever, nausea, vomiting, constipation, hypertension Glucometer checks AC & HS needed with insulin regular sliding scale coverage as needed. Blood pressure checks every 4 hours and as needed. Reconcile home medications once available. Monitor renal and liver function. Monitor electrolytes and treat accordingly. GI and DVT prophylaxis: Protonix and SCDs AM labs. ADVANCED CARE PLANNING 1. Which of the following were discussed? Hospice Care - No Therapeutic options - Yes Advance Directives - Yes Other discussions - 2. Discussed with who? Patient 3. Voluntary nature of this service was explained to the patient? Yes 4. Amount of time spent - __ over 35 minutes 5. Reviewed by Physician? (if this service was performed by PAM) Yes ATTESTATION BY PHYSICIAN I have seen and examined the patient. I reviewed the documentation, medical decision making, and treatment plan as noted by the mid-level provider above. I agree with the findings and plan of care. LEIGHA CARDOZA CONTINUOUS CRUSHER OPERATOR July 03, 2024 00:07
[2024-07-03] MEDS: LIDOCAINE HCL 2% VISCOUS 15 ML UDCUP PO ONE (00:12)
[2024-07-03] MEDS: MAG/ALUM/SIMETH 30 ML UDCUP PO ONE (00:12)
[2024-07-03] MEDS: ketOROlac 30MG VIAL (30MG/ML) IVP ONE (00:12)
[2024-07-03] MEDS: DICYCLOMINE HCL 10 MG/5 ML ML PO ONE (00:12)
[2024-07-03 00:23] LABS: ADD UA MICROSCOPIC YES; APPEARANCE,URINE CLEAR (CLEAR); BILIRUBIN,URINE NEGATIVE (NEGATIVE); COLOR,URINE LIGHT-YELLOW (YELLOW); GLUCOSE, URINE (UA) NEGATIVE (NEGATIVE); KETONES,URINE NEGATIVE (NEGATIVE); LEUKOCYTE ESTERASE ,URINE 500 Leu/uL (NEGATIVE); NITRATE,URINE NEGATIVE (NEGATIVE); OCCULT BLOOD,URINE NEGATIVE (NEGATIVE); PH,URINE 5.5 (5.0-8.0); PROTEIN,URINE NEGATIVE (NEGATIVE); UROBILINOGEN,URINE 0.2 mg/dL (0.2-1.0)
[2024-07-03 00:24] LABS: MUCUS,URINE RARE LPF (None Seen); SQUAMOUS EPITHELIAL CELL,UR MOD /HPF (0-2)
[2024-07-03 00:25] LABS: HCG,QUALITATIVE URINE NEGATIVE (NEGATIVE)
[2024-07-03 00:29] LABS: BASOPHILS # (AUTO) 0.05 K/uL (0.00-0.20); BASOPHILS % (AUTO) 0.5 % (0.0-5.0); EOSINOPHILS # (AUTO) 0.14 K/uL (0.00-0.70); EOSINOPHILS % (AUTO) 1.3 % (0.0-8.0); HEMATOCRIT 37.7 % (36-48); IMMATURE GRANULOCYTE ABSOLUTE 0.04 K/uL (0-1); LYMPHOCYTES # (AUTO) 2.1 K/uL (1.0-4.8); LYMPHOCYTES % (AUTO) 19.2 % (21.0-51.0); MEAN CORPUSCULAR HEMOGLOBIN 26.1 pg (27.0-33.0); MEAN CORPUSCULAR HGB CONC 31.8 g/dL (32.0-36.0); MEAN CORPUSCULAR VOLUME 82.1 fL (79-99); MONOCYTES # (AUTO) 0.8 K/uL (0.1-1.0); MONOCYTES % (AUTO) 7.6 % (3.0-13.0); NEUTROPHILS # (AUTO) 7.7 K/uL (1.8-7.7); PLATELET COUNT (AUTO) 413 K/uL (130-400); RED BLOOD CELL COUNT(AUTO) 4.59 MIL/uL (4.00-5.50); WHITE BLOOD COUNT (AUTO) 10.9 K/uL (4.8-10.8)
[2024-07-03 00:33] LABS: CREATININE 0.7 mg/dL (0.5-1.0); POTASSIUM 4.3 mmol/L (3.5-5.1)
[2024-07-03 00:38] LABS: ALBUMIN 3.3 g/dL (3.5-5.0); BILIRUBIN,TOTAL 0.5 mg/dL (0.2-1.0); TOTAL PROTEIN, SERUM 7.4 g/dL (6.0-8.3)
[2024-07-03] MEDS: hydroMORPHone 1 MG INJ IVP ONE (00:52)
[2024-07-03] MEDS ORDERED: DEXTROSE 50%-WATER 50 ML DISP.SYRIN IV PRN (02:00)
[2024-07-03] MEDS ORDERED: doCUSate SODIUM 100 MG CAP PO PRN (02:00)
[2024-07-03] MEDS ORDERED: PoTASSium chl 10% ELIXIR 20MEQ 20 MEQ/15 ML UDCUP PO PRN (02:00)
[2024-07-03] MEDS ORDERED: acetaMINOPHEN 650 MG SUPPOSITORY RC PRN (02:00)
[2024-07-03] MEDS ORDERED: TEMAZepam 15 MG CAPSULE PO PRN (02:00)
[2024-07-03] MEDS ORDERED: PoTASSium chloRIDE 20MEQ ER 20 MEQ ERTAB PO PRN (02:00)
[2024-07-03] MEDS ORDERED: GLUCAGON 1MG KIT 1 MG ML IM PRN (02:00)
[2024-07-03] MEDS ORDERED: LACTULOSE 20 GM/30 ML UDCUP PO PRN (02:00)
[2024-07-03] MEDS ORDERED: LAbetaLOL 20MG SYG IV PRN (02:00)
[2024-07-03] MEDS ORDERED: MAGNESIUM 2GM PREMIX 50ML 50 ML IV PRN (02:00)
[2024-07-03] MEDS ORDERED: PoTASSium chloRIDE 20MEQ/100ML 100 ML IV PRN (02:00)
[2024-07-03] MEDS ORDERED: HYDROcodone/APAP 5/325 1 TAB TABLET PO PRN ×2 (02:00→02:30)
[2024-07-03] MEDS ORDERED: acetaMINOPHEN 325 MG TAB PO PRN (02:00)
[2024-07-03 02:33] LABS: HEMOGLOBIN A1C 5.7 % (4.0-6.0)
[2024-07-03] MEDS ORDERED: MULT-503 PO (03:22)
[2024-07-03] MEDS ORDERED: GLUC1TAB61 PO (03:22)
[2024-07-03] MEDS ORDERED: METO-391 PO (03:22)
[2024-07-03] MEDS: ondanSETRON 4MG INJ IVP PRN (03:24)
[2024-07-03] MEDS: cefTRIAXone 2GM VIAL IVPB SCH (03:24)
[2024-07-03] MEDS: LACTATED RINGERS 1000ML 1,000 ML IV ONE (03:24)
[2024-07-03] MEDS: INSULIN humuLIN R 100 UNIT/ML 3ML SQ SCH (05:15)
[2024-07-03] MEDS ORDERED: ketOROlac 30MG VIAL (30MG/ML) IVP PRN (06:00)
[2024-07-03 07:17] LABS: HEMATOCRIT 35.1 % (36-48); MEAN CORPUSCULAR HEMOGLOBIN 26.1 pg (27.0-33.0); MEAN CORPUSCULAR HGB CONC 31.6 g/dL (32.0-36.0); MEAN CORPUSCULAR VOLUME 82.6 fL (79-99); RED BLOOD CELL COUNT(AUTO) 4.25 MIL/uL (4.00-5.50); WHITE BLOOD COUNT (AUTO) 13.5 K/uL (4.8-10.8)
[2024-07-03 07:39] LABS: ALBUMIN 3.1 g/dL (3.5-5.0); BILIRUBIN,TOTAL 0.4 mg/dL (0.2-1.0); CREATININE 0.6 mg/dL (0.5-1.0); MAGNESIUM 2.1 mg/dL (1.80-2.40); POTASSIUM 4.4 mmol/L (3.5-5.1); THYROID STIMULATING HORMONE 0.99 uIU/mL (0.36-3.74); TOTAL PROTEIN, SERUM 6.9 g/dL (6.0-8.3)
--- NOTE | 2024-07-03 09:32 | NUR ---
DCP: HOME Pt currently lives with terry Curry [phone] and 2 young children. Pt does not have any food, assisted, or utilities insecurities. Pt does not have DME, HH, or provider services. Pt and complete ADLs independently. PCP is Lizbeth Garcia and uses [facility] for any RX needs. At [place] pt will return home and family can assist with transportation. Addendum: 07/03/24 at 0934 by EMANI SHANNON SS Amended: Links added.
--- NOTE | 2024-07-03 10:34 | HMCIMG ---
US ABD LIMITED/ABD WALL HISTORY: Abdominal pain COMPARISON: None TECHNIQUE: Right upper quadrant abdominal ultrasound study was performed. FINDINGS: Liver measures 17 cm. The visualized portion of the pancreas is within normal limits. Liver is echogenic consistent with liver parenchymal disease. Gallstones are seen in the gallbladder. Common duct measures 5 mm. No evidence of gallbladder wall thickening is seen. Right kidney measures 10.3 x 4.6 x 5 cm. No hydronephrosis is seen of the right kidney. IMPRESSION: 1. Gallstones in the distended gallbladder. No ductal dilatation is seen. 2. No hydronephrosis is seen.
[2024-07-03] MEDS: PANTOPrazole 40 MG TAB DR PO SCH (13:33)
[2024-07-03] MEDS: metRONIDazole 500MG/100ML BAG IV SCH (13:33)
[2024-07-03] MEDS: metOPROLol sucCINATE 50 MG TAB.SR.24H PO SCH (13:33)
[2024-07-03] MEDS: MULTIVITAMIN WITH MINERALS TABLET PO SCH (13:33)
--- NOTE | 2024-07-03 13:33 | NUR ---
0900 AM MEDS ADMINISTERED AT THIS TIME. PER DR. CLEMENTS, PATIENT ALLOWED TO HAVE CLEAR LIQUID DIET. WITH PATIENT NO LONGER NPO, AM MEDS ADMINISTERED.
--- NOTE | 2024-07-03 15:54 | CONS ---
CONSULT NOTE: Consulting physician: Dr. Scales Consulting service: General surgery Reason for consultation: Possible cholecystitis History of present illness: This is a 38-year-old female with no significant medical history that has been consulted to surgery after presenting to the hospital with an abdominal discomfort that began the previous day. Patient reports that for the last year she has been dealing with off and on issues of abdominal discomfort but due to significant increase in intensity she presented to the hospital for further evaluation. Initial imaging concerning for cholelithiasis. Patient is however reports that she is taking antibiotics for UTI. Patient presented with a white count of 13. LFTs elevated as well with bilirubin unremarkable. Ultrasound consistent with cholelithiasis and concerns of possible distended gallbladder Medical history: No significant medical history Surgical history: and tonsillectomy Review of systems: General: No Fever, No Chills, No Night Sweats, No Fatigue, No Malaise, No Appetite, No Other HEENT: No Head Aches, No Visual Changes, No Eye Pain, No Ear Pain, No Dysphasia, No Sinus Congestion, No Post Nasal Drip, No Sore Throat, No Other Pulmonary: No Dyspnea, No Cough, No Pleuritic Chest Pain, No Other Cardiovascular: No: Chest Pain, Palpitations, Orthopnea, Paroxysmal No Dyspnea, Edema, Lt Headedness, Other Gastrointestinal: No: Nausea, Vomiting, Diarrhea, Constipation, Melena, Hematochezia, Other Genitourinary: No Dysuria, No Frequency, No Incontinence, No Hematuria, No Retention, No Other Musculoskeletal: No: other, neck pain, shoulder pain, arm pain, back pain, hand pain, leg pain, foot pain Skin: No Urticaria, No Rash, No Other Neurological: No: Weakness, Numbness, Incoordination, Change in speech, Confusion, Seizures, Other Physical exam: General: Awake alert and oriented Heart: Regular rate and rhythm} Lungs: Clear to auscultation no distress Abdomen: [Soft, nontender, nondistended epigastric discomfort improving Assessment: This is a 38-year-old female with concerns of cholecystitis Plan: This point in time to confirm cholecystitis we will order HIDA scan tomorrow since patient has had diet today Patient to continue with diet today but will be made NPO at midnight for in preparation for imaging Continue with the IV fluids and IV antibiotics Repeat CBC and CMP Dr. Fulton to be updated in patient's status and surgical team to follow patient UNIQUE GÓMEZ Jr. July 03, 2024 15:54
[2024-07-03] MEDS: ketOROlac 15MG/ML VIAL (15MG/ML) IV PRN (18:18)
--- NOTE | 2024-07-03 20:54 | HMCIMG ---
HEPATOBILIARY SCAN INDICATION: Right upper abdominal pain COMPARISON: None RADIOPHARMACEUTICAL: Tc99m Choletec DOSE: 7.0 mCi given IV. TECHNIQUE: Abdominal functional images were obtained and submitted for interpretation. FINDINGS: Functional images obtained up to 60 minutes showed hepato-intestinal transit time and accumulation of activity within the gallbladder within normal limits. IMPRESSION: Negative hepatobiliary scan for acute cholecystitis or extrahepatic biliary obstruction.
[2024-07-04] VITALS: BP 132/78; PULSE 83; RESP 19; TEMP 97.7
[2024-07-04 04:00] VITALS: BP 118/82; PULSE 73; RESP 18; TEMP 98
[2024-07-04 05:19] LABS: HEMATOCRIT 34.7 % (36-48); MEAN CORPUSCULAR HEMOGLOBIN 25.7 pg (27.0-33.0); MEAN CORPUSCULAR HGB CONC 30.8 g/dL (32.0-36.0); MEAN CORPUSCULAR VOLUME 83.2 fL (79-99); PLATELET COUNT (AUTO) 373 K/uL (130-400); RED BLOOD CELL COUNT(AUTO) 4.17 MIL/uL (4.00-5.50); RED CELL DISTRIBUTION WIDTH 13.9 % (11.0-15.5); WHITE BLOOD COUNT (AUTO) 9.3 K/uL (4.8-10.8)
[2024-07-04 05:35] LABS: CREATININE 0.6 mg/dL (0.5-1.0); MAGNESIUM 2.1 mg/dL (1.80-2.40); PHOSPHORUS 3.1 mg/dL (2.5-4.9); POTASSIUM 4.1 mmol/L (3.5-5.1)
[2024-07-04 07:42] VITALS: O2SAT 98
[2024-07-04 08:20] VITALS: BP 114/74; PULSE 59; RESP 18; TEMP 98.1
--- NOTE | 2024-07-04 09:59 | PN ---
[facility] PROGRESS NOTE Date of Service: July 04, 2024 Time of Service: 09:57 SUBJECTIVE: Ms. Lindquist is a 38-year-old female who [place] [facility] evaluation of right upper abdominal pain onset yesterday on 07/02/2024. The patient presented to the ED yesterday when she started with the pain and was found to have cholelithiasis. ED provider reported that pain was controlled and the patient wanted to go home because she wanted to attend her daughter's graduation on . The patient stated that after the graduation she went to eat steak and started with severe right upper abdominal pain that radiated to her back. ED provider reports that WBCs were 16, had a positive UA for infection, and was discharged home on pain medication and with Keflex for the UTI. Remarkable lab results: WBCs 10.9, AST 113, ALT 220, albumin 3.3. UA positive for leuk EST. In ED the patient received Toradol 30 mg IV, Maalox, lidocaine, and Bentyl. The patient continued with the abdominal pain. ED provider requested patient be admitted to the hospital with a diagnosis of UTI and biliary colic. 07/04 patient remains admitted to the medical floor, remains hemodynamically stable, afebrile, saturating normal on room air. Hemoglobin today 10.7, he matocrit 34.7, leukocytosis resolved, WBC today 9.3. CMP with a normal arranged. HIDA scan negative hepatobiliary scan for acute cholecystitis. We will continue to follow surgical input and recommendation. During my visit the patient is comfortably in bed, alert oriented x3, she denies chest pain, denies shortness a breath, no nausea, no vomiting, results of HIDA scan discussed with the patient, she would like to be discharged home today. REVIEW OF SYSTEMS 12-point ROS reviewed with the patient. All pertinent positives mentioned above. Otherwise negative, noncontributory, non-pertinent. PHYSICAL EXAM GENERAL APPEARANCE: The patient is awake, alert, and oriented, in no acute cardiopulmonary distress. NEUROLOGICAL: Cranial nerves II-XII grossly intact. Motor is 5/5 in bilateral upper and lower extremities proximal to distal. No sensory deficits. HEENT: Face is symmetric. Pupils are equal and reactive. Extraocular movements are intact. NECK: Supple. No JVD. No thyromegaly. No submental, submandibular, pre- /postauricular, occipital or supraclavicular lymphadenopathy. CHEST: Normal chest expansion. No Telemetry. LUNGS: Absence of any rales, rhonchi or any wheezing. CARDIOVASCULAR: Regular. S1 and S2 normal. No appreciable rubs, murmurs or gallops. ABDOMEN: Obese. Upper abdominal tenderness. Soft and nondistended. There is no rebound, voluntary guarding, or rigidity. : Deferred. No Ackerman. EXTREMITIES: Non-edematous and not cyanotic. No clubbing. Good capillary refill. SKIN: No skin breakdown. Vital Signs (last 8hr) Date Time Temp Pulse Resp B/P (MAP) Pulse Ox O2 Delivery O2 Flow Rate FiO2 07/04/24 08:20 98.1 59 18 114/74 92 07/04/24 07:42 98 Room Air* 0 21 07/04/24 04:00 98.1 73 18 118/82 100 Room Air LABS: Laboratory: Test 07/04/24 05:17 07/04/24 04:53 07/03/24 11:44 07/03/24 07:10 Range/Units Whole Blood Glucose 81 70-110 MG/DL White Blood Count 9.3 # 4.8-10.8 K/uL Red Blood Count 4.17 4.00-5.50 MIL/uL Hemoglobin 10.7 L 12.0-16.0 g/dL Hematocrit 34.7 L 36-48 % Mean Corpuscular Volume 83.2 79-99 fL Mean Corpuscular Hemoglobin 25.7 L 27.0-33.0 pg Mean Corpuscular Hemoglobin Concent 30.8 L 32.0-36.0 g/dL Red Cell Distribution Width 13.9 11.0-15.5 % Platelet Count 373 130-400 K/uL Mean Platelet Volume 11.0 H 7.5-10.5 fL Nucleated Red Blood Cells 0.0 0.0-0.19 % Red Blood Cell Morphology See comments Sodium Level 139 136-145 mmol/L Potassium Level 4.1 3.5-5.1 mmol/L Chloride Level 105 101-111 mmol/L Carbon Dioxide Level 29 21-32 mmol/L Blood Urea Nitrogen 9 7-18 mg/dL Creatinine 0.6 0.5-1.0 mg/dL Glomerular Filtration Rate Calc 119 >90 mL/min Random Glucose 85 70-105 mg/dL Total Calcium 8.3 L 8.5-10.1 mg/dL Phosphorus Level 3.1 2.5-4.9 mg/dL Magnesium Level 2.10 1.80-2.40 mg/dL Bedside Glucose Comment Notified Nurse Total Bilirubin 0.4 0.2-1.0 mg/dL Aspartate Amino Transf (AST/SGOT) 80 H 10-37 U/L Alanine Aminotransferase (ALT/SGPT) 191 H 12-78 U/L Alkaline Phosphatase 103 50-136 U/L Total Protein 6.9 6.0-8.3 g/dL Albumin 3.1 L 3.5-5.0 g/dL Thyroid Stimulating Hormone (TSH) 0.99 # 0.36-3.74 uIU/mL Test 07/03/24 00:01 Range/Units Immature Granulocyte % (Auto) 0.4 0-1 % Neutrophils (%) (Auto) 71.0 40.0-77.0 % Lymphocytes (%) (Auto) 19.2 L 21.0-51.0 % Monocytes (%) (Auto) 7.6 3.0-13.0 % Eosinophils (%) (Auto) 1.3 0.0-8.0 % Basophils (%) (Auto) 0.5 0.0-5.0 % Neutrophils # (Auto) 7.7 1.8-7.7 K/uL Lymphocytes # (Auto) 2.1 1.0-4.8 K/uL Monocytes # (Auto) 0.8 0.1-1.0 K/uL Eosinophils # (Auto) 0.14 0.00-0.70 K/uL Basophils # (Auto) 0.05 0.00-0.20 K/uL Absolute Immature Granulocyte (auto 0.04 0-1 K/uL Urine Color LIGHT-YELLOW YELLOW Urine Appearance CLEAR CLEAR Urine pH 5.5 5.0-8.0 Urine Specific Kinney 1.027 1.001-1.031 Urine Protein NEGATIVE NEGATIVE mg/dL Urine Glucose (UA) NEGATIVE NEGATIVE mg/dL Urine Ketones NEGATIVE NEGATIVE mg/dL Urine Occult Blood NEGATIVE NEGATIVE Urine Nitrate NEGATIVE NEGATIVE Urine Bilirubin NEGATIVE NEGATIVE mg/dL Urine Urobilinogen 0.2 0.2-1.0 mg/dL Urine Leukocyte Esterase 500 H NEGATIVE Praful/uL Urine RBC 2-5 H 0-1 /HPF Urine WBC 11-25 H 0-1 /HPF Urine Squamous Epithelial Cells MOD 0-2 /HPF Urine Bacteria None None Seen /HPF Urine HCG, Qualitative NEGATIVE NEGATIVE Hemoglobin A1c 5.7 4.0-6.0 % Estimated Average Glucose (eAG) 117 70-126 mg/dL Current Medications Medications (Trade) Dose Ordered Sig/Gerald Route PRN Reason Start Time Stop Time Status Last Admin Dose Admin Acetaminophen (TYLenol 325MG TAB) 650 mg Q6H PRN PO FEVER/MILD PAIN LEVEL 1-3 07/03/24 02:00 08/02/24 01:59 Acetaminophen (TYLenol 650MG SUPPOSITORY) 650 mg Q6H PRN RC FEVER / MILD PAIN 1-3 IF NPO 07/03/24 02:00 08/02/24 01:59 Acetaminophen/ Hydrocodone Bitart (NORco 5/325MG) 1 tab Q6H PRN PO MODERATE PAIN (4-6) 07/03/24 02:00 07/03/24 13:21 DC Acetaminophen/ Hydrocodone Bitart (NORco 5/325MG) 2 tab Q6H PRN PO SEVERE PAIN (7-10) 07/03/24 02:30 07/08/24 02:29 Ceftriaxone Sodium (Rocephin 2gm Inj) 2 gm Q24H IVPB 07/03/24 02:00 07/13/24 01:59 07/04/24 02:21 2 GM Dextrose (D50w) 50 ml AD PRN IV HYPOGLYCEMIA PROTOCOL 07/03/24 02:00 08/02/24 01:59 Docusate Sodium (COLace 100MG CAP) 100 mg BID PRN PO c 07/03/24 02:00 08/02/24 01:59 Glucagon (Glucagon 1mg Kit) 1 mg AD PRN IM HYPOGLYCEMIA PROTOCOL 07/03/24 02:00 08/02/24 01:59 Insulin Human Regular (humuLIN R 100 UNIT/ML 3ML) INSULIN SLIDING SCAL... ACHS SQ 07/03/24 07:30 08/02/24 07:29 Ketorolac Tromethamine (toRADol) 15 mg Q6H PRN IV MODERATE PAIN (4-6) 07/03/24 13:30 07/08/24 13:29 07/04/24 09:43 15 MG Ketorolac Tromethamine (toRADol) 30 mg Q6H PRN IVP SEVERE PAIN (7-10) IF NPO 07/03/24 06:00 07/03/24 13:21 DC Labetalol HCl (TRANdate 20MG SYG) 10 mg Q2H PRN IV SBP GREATER THAN 160 07/03/24 02:00 08/02/24 01:59 Lactulose (Constulose 20gm/ 30ml Udcup) 20 gm Q6H PRN PO CONSTIPATION 07/03/24 02:00 08/02/24 01:59 Magnesium Sulfate 50 ml @ 0 mls/hr PROTOCOL PRN IV MAGNESIUM PROTOCOL 07/03/24 02:00 08/02/24 01:59 Metoprolol Succinate (TopROL XL) 75 mg DAILY PO 07/03/24 09:00 08/02/24 08:59 07/03/24 13:33 75 MG Metronidazole/ Sodium Chloride (flaGYL) 500 mg Q8H IV 07/03/24 13:00 07/13/24 12:59 07/04/24 05:10 500 MG Multivitamins/ Minerals (Centrum) 1 tab DAILY PO 07/03/24 09:00 08/02/24 08:59 07/04/24 09:41 1 TAB Ondansetron HCl (zoFRAN 4MG INJ) 4 mg Q6H PRN IVP NAUSEA/VOMITING 07/03/24 02:00 08/02/24 01:59 07/03/24 03:24 4 MG Pantoprazole Sodium (PROTonix 40MG TAB) 40 mg DAILY PO 07/03/24 09:00 08/02/24 08:59 07/04/24 09:41 40 MG Potassium Chloride 100 ml @ 100 mls/hr AD PRN IV POTASSIUM PROTOCOL 07/03/24 02:00 08/02/24 01:59 Potassium Chloride (K-Dur/Klor-Con 20meq) 20 meq AD PRN PO POTASSIUM PROTOCOL 07/03/24 02:00 08/02/24 01:59 Potassium Chloride (KCl 10% Elixir 20meq/15ml) 20 meq AD PRN PO POTASSIUM PROTOCOL 07/03/24 02:00 08/02/24 01:59 Temazepam (restORIL 15 MG CAP) 15 mg HS PRN PO INSOMNIA/SLEEP 07/03/24 02:00 08/02/24 01:59 DIAGNOSTICS / RADIOLOGY: [ ] ASSESSMENT: Cholelithiasis with distended gallbladder, per sono on 07/02/2024, POA Acute complicated cystitis, POA Acute intractable abdominal pain, POA Leukocytosis, POA Transaminitis, POA Hypoalbuminemia, POA Hypertension, POA Arthritis History of tachycardia Morbid obesity, BMI 40.5 PLAN: Patient admitted to medical floor Continue the patient supportive care with IV fluids, pain medication, empiric antibiotics. HIDA scan reviewed, no evidence of acute cholecystitis, continue to follow surgical input and recommendation. NEURO: Minimize central acting medications as possible. Fall Precautions. Well lighted room through the day and minimize interruptions through the night to prevent acute delirium. PULMONARY: Supplemental 02 as needed BiPAP as necessary, for respiratory distress Titrate Fio2 to keep Spo2 > or = 90% DuoNebs and CPT as needed IS hourly while awake for pulmonary hygiene prn Out of bed to chair as tolerated Maintain aspiration precautions at all times CARDIOVASCULAR: Follow hemodynamics. Vital signs per facility protocol GI & NUTRITION: Continue nutritional support Aspirations precautions Prokinetic agents and laxatives as needed KIDNEYS & ELECTROLYTES: Strict monitoring of intake and output Daily weights Avoid nephrotoxic agents Monitor electrolytes and replace as needed Goal urine output of 30mL/hr or 0.5mL/kg/hr Medications to be dosed according to renal function. Avoid contrast if possible ENDOCRINE: Maintain blood glucose between 100-180 at all times. Insulin sliding scale for blood glucose management Hypoglycemia and hyperglycemia protocol in place INFECTIOUS DISEASE: Trend temperature, WBC and procalcitonin level Follow cultures, deescalate antibiotics as soon as possible. Panculture if new onset fever HEMATOLOGY & COAGULATION: Monitor H&H. Keep Hgb > 7 Transfuse 1 unit of PRBC for Hgb < 7 Transfuse 1 pack of platelets of platelets < 20, 000 Watch for any signs and symptoms of bleeding SKIN: Pressure ulcer prevention per facility protocol Specialty mattress as needed ORTHO/REHAB Continue PT/OT PRN: MEDICATIONS Tylenol 650 mg po every 4 hrs for fever zofran 4 mg IV every 6 hrs for n/v Hydralazine 5 mg IV every 4 hrs systolic pressure > 160 bowel regiment: lactulose 20 gm PO BID PRN constipation Supportive measures: Continue GI and DVT prophylaxis Disposition: Pending improvement in clinical condition All questions answered time spent: > 35 min ORTEGA CLEMENTS MD July 04, 2024 09:59
[2024-07-04] MEDS ORDERED: AMOX1TAB16 PO (11:42)
--- NOTE | 2024-07-04 11:45 | DS ---
Discharge Summary Hospital Course Summary: Ms. Lindquist is a 38-year-old female who presented to [facility] [place] ED for evaluation of right upper abdominal pain onset yesterday on 07/02/2024. The patient presented to the ED yesterday when she started with the pain and was found to have cholelithiasis. ED provider reported that pain was controlled and the patient wanted to go home because she wanted to attend her daughter's graduation on . The patient stated that after the graduation she went to eat steak and started with severe right upper abdominal pain that radiated to her back. ED provider reports that WBCs were 16, had a positive UA for infection, and was discharged home on pain medication and with Keflex for the UTI. Remarkable lab results: WBCs 10.9, AST 113, ALT 220, albumin 3.3. UA positive for leuk EST. In ED the patient received Toradol 30 mg IV, Maalox, lidocaine, and Bentyl. The patient continued with the abdominal pain. ED provider requested patient be admitted to the hospital with a diagnosis of UTI and biliary colic. 07/04 patient remains admitted to the medical floor, remains hemodynamically stable, afebrile, saturating normal on room air. Hemoglobin today 10.7, hematocrit 34.7, leukocytosis resolved, WBC today 9.3. CMP with a normal arranged. HIDA scan negative hepatobiliary scan for acute cholecystitis. We will continue to follow surgical input and recommendation. Legal Administrator(s): General surgery Assessment/Plan: Final diagnosis Cholelithiasis with distended gallbladder, per sono on 07/02/2024, POA Acute cholecystitis ruled out Acute complicated cystitis, POA Acute intractable abdominal pain, POA Leukocytosis, POA Transaminitis, POA Hypoalbuminemia, POA Hypertension, POA Arthritis History of tachycardia Morbid obesity, BMI 40.5 Discharge Instructions: The patient to be discharged home, to follow up with primary care physician as well as General surgery as an outpatient and to return to hospital if condition changes. Patient agreed with plan and understood the information provided. Home Medications: Reported Medications Glucosamine/Chondro Alcantar A (Glucosamine-Chondroitin Tab) 500 Mg-400 Mg Tablet, 1 EACH PO DAILY, TAB 07/03/24 Multivitamin with Minerals (One Daily Complete) 1 Each Tablet, 1 EACH PO DAILY, TAB 07/03/24 Metoprolol Succinate (Metoprolol Succinate) 50 Mg Tab.er.24h, 75 MG PO DAILY, TAB 07/03/24 Discontinued Reported Medications [Stephane/Mg/Zinc] No Conflict Check, 1 TAB PO DAILY 09/27/23 [Pulmicort] No Conflict Check, 2 PUFF IH AD PRN for SHORTNESS OF BREATH 09/27/23 [Albuterol] No Conflict Check, 2 PUFF IH AD PRN for SHORTNESS OF BREATH 09/27/23 Ibuprofen (Ibuprofen 800 mg Tab) 800 Mg Tab, 800 MG PO TID PRN for PAIN, TAB 09/27/23 [Mvi] No Conflict Check, 1 TAB PO DAILY 09/27/23 Cholecalciferol (Vitamin D3) (Vitamin D3) 50 Mcg (2000 Unit) Capsule, 50 MCG PO DAILY, CAP 09/27/23 Discontinued Scripts Ketorolac Tromethamine (Toradol) 10 Mg Tab, 1 TAB PO Q6HPRN PRN for pain for 5 Days, #20 TAB 0 Refills Prov:JULIAN HOFF MD 07/02/24 Cephalexin Monohydrate (Keflex) 500 Mg Cap, 500 MG PO QID for 7 Days, #28 CAP Prov:JULIAN HOFF MD 07/02/24 Ketorolac Tromethamine (Ketorolac Tromethamine) 10 Mg Tablet, 1 TAB PO Q6HPRN PRN for pain for 5 Days, #20 TAB 0 Refills Prov:WES WELSH [employer] 12/12/23 Famotidine (Pepcid) 20 Mg Tablet, 1 TAB PO BID for 30 Days, #60 TAB 0 Refills Prov:WES WELSH [employer] 12/12/23 Metoprolol Succinate (Metoprolol Succinate) 50 Mg Tab.er.24h, 50 MG PO DAILY, #30 TAB 3 Refills Prov:RAYMOND ALMEIDA MD 10/01/23 Time spent arranging discharge: 31-60 minutes ORTEGA CLEMENTS MD July 04, 2024 11:45
[2024-07-04 11:50] VITALS: BP 106/56; PULSE 68; RESP 16; TEMP 98
--- NOTE | 2024-07-04 13:55 | NUR ---
DR SHELBY LÓPEZ. SURGICALLY CLEARED TO BE DC'D AND F/U IN OFFICE IN 1 WEEK
--- NOTE | 2024-07-04 14:11 | NUR ---
D/C INSTRUCTIONS GIVEN TO PATIENT AND ACKNOWLEDGED. IV REMOVED
--- NOTE | 2024-07-04 14:55 | PN ---
GENERAL SURGERY PROGRESS NOTE Date/Time Patient Seen: 07/04/2024 12:00 p.m. Problem List: Symptomatic cholelithiasis Interval History: patient tolerating clears and abdominal pain has improved I explained to her that her HIDA scan was negative for acute cholecystitis Current Medications Medications (Trade) Dose Ordered Sig/Gerald Route Start Time Stop Time Status Last Admin Dose Admin Ceftriaxone Sodium (Rocephin 2gm Inj) 2 gm Q24H IVPB 07/03/24 02:00 07/13/24 01:59 07/04/24 02:21 2 GM Insulin Human Regular (humuLIN R 100 UNIT/ML 3ML) INSULIN SLIDING SCAL... ACHS SQ 07/03/24 07:30 08/02/24 07:29 Metoprolol Succinate (TopROL XL) 75 mg DAILY PO 07/03/24 09:00 08/02/24 08:59 07/03/24 13:33 75 MG Metronidazole/ Sodium Chloride (flaGYL) 500 mg Q8H IV 07/03/24 13:00 07/13/24 12:59 07/04/24 05:10 500 MG Multivitamins/ Minerals (Centrum) 1 tab DAILY PO 07/03/24 09:00 08/02/24 08:59 07/04/24 09:41 1 TAB Pantoprazole Sodium (PROTonix 40MG TAB) 40 mg DAILY PO 07/03/24 09:00 08/02/24 08:59 07/04/24 09:41 40 MG Physical Examination: GENERAL: [No acute distress.] HEAD: [Normal with no signs of head trauma.] EYES: [PERRLA, EOMI, conjunctiva and sclera normal.] ENT: [Hearing grossly intact, normal oropharynx.] NECK: [Supple without JVD. There is no tenderness, lymphadenopathy, or masses. No thyromegaly. Normal carotid upstrokes without bruits.] LUNGS: [Clear breath sounds bilaterally. There are right basilar rales one third of the way up the chest. No wheezes, or rhonchi.] HEART: [Normal rate and rhythm. Normal S1 and S2 without mumurs, gallop or rub.] VASC: [Peripheral pulses +2 bilaterally.] ABD: [Bowel sounds normal, soft, nontender, no masses, no organomegaly. No audible bruits.] : [Not examined] LYMPH: [No lymphadenopathy noted.] EXT: [No clubbing, cyanosis or edema.] SKIN: [No rashes or lesions noted.] NEURO: [Awake, alert, and oriented x3. No focal sensory or strength deficits noted.] Vital Signs (last 8hr) Date Time Temp Pulse Resp B/P (MAP) Pulse Ox O2 Delivery O2 Flow Rate FiO2 07/04/24 11:50 98.1 68 16 106/56 95 07/04/24 08:20 98.1 59 18 114/74 92 07/04/24 07:42 98 Room Air* 0 21 Laboratory: [ ] Hematology Labs: Test 07/04/24 04:53 07/03/24 00:01 Range/Units White Blood Count 9.3 # 4.8-10.8 K/uL Red Blood Count 4.17 4.00-5.50 MIL/uL Hemoglobin 10.7 L 12.0-16.0 g/dL Hematocrit 34.7 L 36-48 % Mean Corpuscular Volume 83.2 79-99 fL Mean Corpuscular Hemoglobin 25.7 L 27.0-33.0 pg Mean Corpuscular Hemoglobin Concent 30.8 L 32.0-36.0 g/dL Red Cell Distribution Width 13.9 11.0-15.5 % Platelet Count 373 130-400 K/uL Mean Platelet Volume 11.0 H 7.5-10.5 fL Nucleated Red Blood Cells 0.0 0.0-0.19 % Red Blood Cell Morphology See comments Immature Granulocyte % (Auto) 0.4 0-1 % Neutrophils (%) (Auto) 71.0 40.0-77.0 % Lymphocytes (%) (Auto) 19.2 L 21.0-51.0 % Monocytes (%) (Auto) 7.6 3.0-13.0 % Eosinophils (%) (Auto) 1.3 0.0-8.0 % Basophils (%) (Auto) 0.5 0.0-5.0 % Neutrophils # (Auto) 7.7 1.8-7.7 K/uL Lymphocytes # (Auto) 2.1 1.0-4.8 K/uL Monocytes # (Auto) 0.8 0.1-1.0 K/uL Eosinophils # (Auto) 0.14 0.00-0.70 K/uL Basophils # (Auto) 0.05 0.00-0.20 K/uL Absolute Immature Granulocyte (auto 0.04 0-1 K/uL Chemistry Labs: Test 07/04/24 11:09 07/04/24 04:53 07/03/24 11:44 07/03/24 07:10 Range/Units Whole Blood Glucose 90 70-110 MG/DL Sodium Level 139 136-145 mmol/L Potassium Level 4.1 3.5-5.1 mmol/L Chloride Level 105 101-111 mmol/L Carbon Dioxide Level 29 21-32 mmol/L Blood Urea Nitrogen 9 7-18 mg/dL Creatinine 0.6 0.5-1.0 mg/dL Glomerular Filtration Rate Calc 119 >90 mL/min Random Glucose 85 70-105 mg/dL Total Calcium 8.3 L 8.5-10.1 mg/dL Phosphorus Level 3.1 2.5-4.9 mg/dL Magnesium Level 2.10 1.80-2.40 mg/dL Bedside Glucose Comment Notified Nurse Total Bilirubin 0.4 0.2-1.0 mg/dL Aspartate Amino Transf (AST/SGOT) 80 H 10-37 U/L Alanine Aminotransferase (ALT/SGPT) 191 H 12-78 U/L Alkaline Phosphatase 103 50-136 U/L Total Protein 6.9 6.0-8.3 g/dL Albumin 3.1 L 3.5-5.0 g/dL Thyroid Stimulating Hormone (TSH) 0.99 # 0.36-3.74 uIU/mL Test 07/03/24 00:01 Range/Units Hemoglobin A1c 5.7 4.0-6.0 % Estimated Average Glucose (eAG) 117 70-126 mg/dL Diagnostics / Radiology: HIDA scan negative for acute cholecystitis Impression and Plan: 38-year-old female with symptomatic cholelithiasis she can be discharged home today she will need to follow up in my office later this week and we can arrange for an elective cholecystectomy. I told her to avoid eating meat at this time as well as any fried or fatty foods. We will sign off at this time please recall RAMIRO Garcia MD July 04, 2024 14:55
== END 2024-07-04 16:00 | disposition home or self-care (01) ==
LOC: EDH 23:04 → EDHIP 23:05 → 3BH 07-03 02:45
PROVIDERS: ADMIT Internal Medicine; ATTEND Internal Medicine
DX: N30.00 Acute cystitis without hematuria (principal); K82.8 Other specified diseases of gallbladder; K80.20 Calculus of gallbladder without cholecystitis without obstruction; D72.829 Elevated white blood cell count, unspecified; E66.01 Morbid (severe) obesity due to excess calories; E88.09 Other disorders of plasma-protein metabolism, not elsewhere classified; R74.01 Elevation of levels of liver transaminase levels; I10 Essential (primary) hypertension; M19.90 Unspecified osteoarthritis, unspecified site; Z68.41 Body mass index [BMI] 40.0-44.9, adult; Z79.899 Other long term (current) drug therapy
CPT/HCPCS: 80053 ×2; 81001 ×2; 99285; 99284; 82550; 80076; 84484; 80048 ×2; 80305; 83690; 85025 ×2; 87040 ×2; 87086; 83605; 81025 ×2; 36415 ×3; 76705 ×2; 96374; 96375 ×2; 93005; 85027 ×2; 96376 ×2; 96365; 96366 ×2; 96367; 83036; 84443; 83735 ×2; 84100 ×2; 82948 ×5; 78227; G0378 ×40; J7030; J2405 ×2; J2270; J1885 ×5; J2543; J2470; J1171; J0696 ×3; J3490 ×3; A9537